=== PATIENT | male | born 1980 | race Caucasian/White ===

== ENCOUNTER 2017-09-16 13:53 | Emergency (ER) | payer BC, OTHER ==
[2017-09-16] MEDS ORDERED: PREDNISONE 20 MG TABLET PO ONE (15:05)
[2017-09-16] MEDS ORDERED: IPRATROPIUM/ALBUTEROL 0.5-2.5 MG/3 ML AMPUL NEB ONE (15:06)
[2017-09-16] MEDS ORDERED: CEPHALEXIN 500 MG CAPSULE PO ONE (15:06)
[2017-09-16] MEDS ORDERED: SULFAMETHOXAZOLE/TRIMETHOPRIM 800-160 MG TABLET PO ONE (15:06)
--- NOTE | 2017-09-16 15:08 | ER Document Report ---
HPI - HPI Patient complains to provider of: Skin infection Onset: Other - 5 days Onset/Duration: Persistent Quality of pain: Achy Pain Level: 3 Context: Patient complains of right thigh skin infection for the past 5 days. Patient states that he did stick a needle in the area to see if he could drain any infection. Patient complains of increased area of redness. Patient denies any fever. Patient does report a history of asthma in which she has very frequent exacerbations. Patient does acknowledge that he has had increased wheezing recently. Associated Symptoms: Other - Leg infection, wheezing. denies: Fever Exacerbated by: Walking Relieved by: Denies Similar symptoms previously: Yes - Asthma Recently seen / treated by doctor: No - ROS ROS below otherwise negative: Yes Systems Reviewed and Negative: Yes All other systems reviewed and negative - CONSTITUTIONAL Constitutional: DENIES: Fever, Chills - CARDIOVASCULAR Cardiovascular: DENIES: Chest pain - RESPIRATORY Respiratory: DENIES: Trouble Breathing, Coughing - GASTROINTESTINAL Gastrointestinal: DENIES: Nausea - MUSCULOSKELETAL Musculoskeletal: REPORTS: Extremity pain - DERM Skin Color: Erythema Past Medical History - General Information source: Patient - Social History Smoking Status: Never Smoker Frequency of alcohol use: Occasional Drug Abuse: None Occupation: [employer] Lives with: Family Family History: Reviewed & Not Pertinent - Past Medical History Cardiac Medical History: Denies: Hx Coronary Artery Disease, Hx Heart Attack, Hx Hypertension Pulmonary Medical History: Reports: Hx Asthma Denies: Hx Bronchitis, Hx COPD, Hx Pneumonia Neurological Medical History: Denies: Hx Cerebrovascular Accident, Hx Seizures Musculoskeltal Medical History: Denies Hx Arthritis, Reports Hx Musculoskeletal Deformity, Reports Hx Musculoskeletal Trauma Past Surgical History: Reports: Hx Appendectomy, Other - Sinus surgery - Immunizations Immunizations up to date: Yes Hx Diphtheria, Pertussis, Tetanus Vaccination: Yes Vertical Provider Document - CONSTITUTIONAL Agree With Documented VS: Yes Exam Limitations: No Limitations General Appearance: WD/WN, No Apparent Distress - INFECTION CONTROL TRAVEL OUTSIDE OF THE [place] IN LAST 30 DAYS: No - HEENT HEENT: Atraumatic, Normocephalic - NECK Neck: Normal Inspection. negative: Lymphadenopathy-Left, Lymphadenopathy-Right - RESPIRATORY Respiratory: No Respiratory Distress, Chest Non-Tender, Wheezing O2 Sat by Pulse Oximetry: 95 - CARDIOVASCULAR Cardiovascular: Regular Rhythm, No Murmur, Tachycardia - BACK Back: Normal Inspection - MUSCULOSKELETAL/EXTREMETIES Musculoskeletal/Extremeties: MAEW, FROM - NEURO Level of Consciousness: Awake, Alert, Appropriate - DERM Integumentary: Warm, Dry, Abscess - Developing abscess to right medial thigh, area tender indurated with surrounding erythema concerning for cellulitis Course - Re-evaluation Re-evalutation: 09/16/17 15:57 Pt continues with scattered wheezing although with good air movement. Patient prefers to continue his treatments at home and is ready to be discharged at this time. Discussed wound management. Discussed worsening symptoms to return immediately for. Patient verbalized understanding and agrees with plan of care. 09/16/17 16:01 Controlled substance database reviewed - Vital Signs Vital signs: Temp Pulse Resp BP Pulse Ox 98.3 F 116 H 20 145/67 H 95 09/16/17 14:15 09/16/17 14:15 09/16/17 14:15 09/16/17 14:15 09/16/17 14:15 Discharge - Discharge Clinical Impression: Elevated blood pressure reading Asthma exacerbation Qualifiers: Asthma severity: unspecified severity Asthma persistence: unspecified Qualified Code(s): J45.901 - Unspecified asthma with (acute) exacerbation Cellulitis of leg Qualifiers: Laterality: right Qualified Code(s): L03.115 - Cellulitis of right lower limb Condition: Stable Disposition: HOME, SELF-CARE Instructions: Asthma ([facility]), Cephalexin ([facility]), Inhaled Bronchodilators ([facility]), Oral Narcotic Medication ([facility]), Steroid Medication, Trimethoprim-Sulfa ([facility]) Additional Instructions: Return immediately for any new or worsening symptoms Followup with your primary care provider, call tomorrow to make a followup appointment Continue to use your nebulizer and inhalers at home as prescribed Your blood pressure was mildly elevated today, have your primary doctor recheck this in the next 2-3 days. Prescriptions: Cephalexin Monohydrate [Keflex 500 mg Capsule] 500 mg PO Q6H 7 Days capsule Hydrocodone/Acetaminophen [[place] 5-325 Tablet] 1 each PO Q4 PRN #15 tablet PRN Reason: Prednisone [Deltasone 20 mg Tablet] 2 tab PO DAILY 4 Days tablet Sulfamethoxazole/Trimethoprim [Bactrim Ds Tablet] 1 each PO BID #20 tablet Forms: Elevated Blood Pressure, Return to Work Referrals: ADILIA BROUSSARD MD [[facility]] - Follow up in 3-5 days
[2017-09-16 17:14] VITALS: BP 125/75
== END 2017-09-16 17:14 | disposition home or self-care (01) ==
LOC: ER 13:53
DX: J45.901 Unspecified asthma with (acute) exacerbation (principal); L03.115 Cellulitis of right lower limb; R03.0 Elevated blood-pressure reading, without diagnosis of hypertension
CPT/HCPCS: 94640; 99282; J7512; J7620

== ENCOUNTER 2018-10-05 23:36 | Inpatient (IN) | payer BC ==
[2018-10-05] MEDS ORDERED: IPRATROPIUM/ALBUTEROL 0.5-2.5 MG/3 ML AMPUL NEB ONE (23:40)
[2018-10-05] MEDS ORDERED: PREDNISONE 20 MG TABLET PO ONE (23:40)
[2018-10-05] MEDS: ALBUTEROL SULFATE 0.083% NEB 2.5 MG/3 ML AMPUL NEB SCH (23:47)
[2018-10-06] MEDS ORDERED: RINGERS SOLUTION,LACTATED 2,000 ML IV ONE (00:10)
[2018-10-06 00:29] LABS: ABSOLUTE BASOPHILS # (AUTO) 0.1 10^3/uL (0.0-0.2); ABSOLUTE LYMPHOCYTES (AUTO) 2.2 10^3/uL (0.5-4.7); ABSOLUTE MONOCYTES (AUTO) 0.9 10^3/uL (0.1-1.4); ABSOLUTE NEUT (AUTO) 5.9 10^3/uL (1.7-8.2); BASOPHILS % (AUTO) 0.7 % (0-2); EOSINOPHILS % (AUTO) 0.3 % (0-6); HEMATOCRIT 45.5 % (37.9-51.0); HEMOGLOBIN 15.8 g/dL (13.5-17.0); LYMPHOCYTES % (AUTO) 23.9 % (13-45); MEAN CORPUSCULAR HEMOGLOBIN 28.6 pg (27.0-33.4); MEAN CORPUSCULAR HGB CONC 34.7 g/dL (32.0-36.0); MEAN CORPUSCULAR VOLUME 82 fl (80-97); MONOCYTES % (AUTO) 10.4 % (3-13); PLATELET COUNT 217 10^3/uL (150-450); RED BLOOD COUNT 5.53 10^6/uL (4.35-5.55); RED CELL DISTRIBUTION WIDTH 14.4 % (11.5-14.0); SEGMENTED NEUTROPHILS % (AUTO) 64.7 % (42-78); TOTAL CELLS COUNTED % (AUTO) 100 %; WHITE BLOOD COUNT 9.1 10^3/uL (4.0-10.5)
[2018-10-06 00:48] LABS: ANION GAP 11 (5-19); BLOOD UREA NITROGEN 18 mg/dL (7-20); CARBON DIOXIDE 29 mmol/L (22-30); CHLORIDE 100 mmol/L (98-107); GLUCOSE 107 mg/dL (75-110); POTASSIUM 4.1 mmol/L (3.6-5.0); SODIUM 139.5 mmol/L (137-145)
[2018-10-06] MEDS ORDERED: ACETAMINOPHEN 325 MG TABLET PO ONE (00:57)
[2018-10-06] MEDS ORDERED: ALBUTEROL SULFATE 0.083% NEB 2.5 MG/3 ML AMPUL NEB ONE (00:59)
--- NOTE | 2018-10-06 00:59 | ER Document Report ---
ED General - General Chief Complaint: Shortness Of Breath Stated Complaint: FLU SYMPTOMS Time Seen by Provider: 10/06/18 00:09 Notes: Patient is a 38-year-old male with a past medical history of asthma, is a history of severe asthma exacerbations in the past requiring intubation who presents complaining of 2 days of fever, cough and increasing shortness of breath. Patient has been trying albuterol inhalers with minimal relief. Has been taking Tylenol for fever with some improvement. No known sick contacts. States that his symptoms progressively worsened today prompting him to come to the hospital. His main concern is that his shortness of breath. Has not seen his primary care doctor regarding today's concerns. Notes some associated nausea, generalized body aches. TRAVEL OUTSIDE OF THE [place] IN LAST 30 DAYS: No - Related Data Allergies/Adverse Reactions: aspirin [Aspirin] Allergy (Severe, Verified 09/19/15 02:12) bronchoconstriction NSAIDS (Non-Steroidal Anti-Inflamma [Nsaids] Allergy (Verified 09/19/15 02:12) Past Medical History - General Information source: Patient - Social History Smoking Status: Never Smoker Frequency of alcohol use: None Drug Abuse: None Lives with: Spouse/Significant other Family History: Reviewed & Not Pertinent - Past Medical History Cardiac Medical History: Denies: Hx Coronary Artery Disease, Hx Heart Attack, Hx Hypertension Pulmonary Medical History: Reports: Hx Asthma Denies: Hx Bronchitis, Hx COPD, Hx Pneumonia Neurological Medical History: Denies: Hx Cerebrovascular Accident, Hx Seizures Renal/ Medical History: Denies: Hx Peritoneal Dialysis Musculoskeletal Medical History: Denies Hx Arthritis, Reports Hx Musculoskeletal Deformity, Reports Hx Musculoskeletal Trauma Past Surgical History: Reports: Hx Appendectomy, Other - Sinus surgery - Immunizations Immunizations up to date: Yes Hx Diphtheria, Pertussis, Tetanus Vaccination: Yes Review of Systems - Review of Systems Notes: Constitutional: Positive for fever. HENT: Negative for sore throat. Eyes: Negative for visual changes. Cardiovascular: Negative for chest pain. Respiratory: Positive for cough and shortness of breath Gastrointestinal: Negative for abdominal pain, positive for nausea Genitourinary: Negative for dysuria. Musculoskeletal: Negative for back pain. Skin: Negative for rash. Neurological: Negative for headaches, weakness or numbness. 10 point ROS negative except as marked above and in HPI. Physical Exam - Vital signs Vitals: Temp Pulse Resp BP Pulse Ox 100.6 F H 137 H 26 H 127/88 H 88 L 10/05/18 23:53 10/05/18 23:53 10/05/18 23:53 10/05/18 23:53 10/05/18 23:53 Interpretation: Tachycardic, Hypoxic, Tachypneic, Febrile Notes: PHYSICAL EXAMINATION: GENERAL: Appears unwell, somewhat pale and shaking HEAD: Atraumatic, normocephalic. EYES: Pupils equal round and reactive to light, extraocular movements intact, sclera anicteric, conjunctiva are normal. ENT: nares patent, oropharynx clear without exudates. Dry mucous membranes. NECK: Normal range of motion, supple without lymphadenopathy LUNGS: Mild to moderate respiratory distress, breathing approximately 30 times per minute on my initial assessment. Coarse breath sounds throughout, faint expiratory wheezing. HEART: Regular tachycardia without murmurs ABDOMEN: Soft, nontender, normoactive bowel sounds. No guarding, no rebound. No masses appreciated. EXTREMITIES: Normal range of motion, no pitting or edema. No cyanosis. NEUROLOGICAL: No focal neurological deficits. Moves all extremities spontaneously and on command. PSYCH: Normal mood, normal affect. SKIN: Warm, Dry, normal turgor, no rashes or lesions noted. Course - Re-evaluation Re-evalutation: 10/06/18 00:58 Patient presents with cough, fever, shortness of breath worrisome for a picture of influenza complicating underlying asthma. Patient was initially saturating 89% on room air, 94% on room air at the time of my assessment receiving multiple nebulizers. Minimal wheezing on initial assessment. She was tachycardic into the 130s as well as febrile at 100.6 F at time of initial presentation. Flu testing, chest x-ray, blood work pending. Patient has received prednisone, multiple nebulizers, and will receive IV fluids, IV magnesium. Will continue to reassess. 10/06/18 01:27 Patient is been reassessed on 2 separate occasions. His work of breathing remains moderately elevated respiratory rate at 25 breaths/min. Patient consistently falls down to 88 or 89% on room air and has been placed on supplemental oxygen. Continuous nebulizers of albuterol are ongoing. Chest x- ray appears to show bilateral interstitial changes likely a multifocal pneumonia versus influenza. Levofloxacin has been initiated. Will continue to reassess. Patient will require hospitalization. 10/06/18 01:33 Patient is influenza A positive. Work of breathing remains relatively uncha nged. I discussed this case with Dr. Vogel who has accepted patient for admission. - Vital Signs Vital signs: Temp Pulse Resp BP Pulse Ox 100.6 F H 137 H 26 H 127/88 H 88 L 10/05/18 23:53 10/05/18 23:53 10/05/18 23:53 10/05/18 23:53 10/05/18 23:53 - Laboratory Result Diagrams: 10/06/18 00:15 10/06/18 00:15 Laboratory results interpreted by me: 10/06/18 00:15 RDW 14.4 H - Diagnostic Test Radiology reviewed: Image reviewed, Reports reviewed Radiology results interpreted by me: 10/06/18 02:13 Chest x-ray: Bilateral interstitial changes more prominent in the lower lobes bilaterally Critical Care Note - Critical Care Note Total time excluding time spent on procedures (mins): 35 Comments: Critical care time spent obtaining history from patient or surrogate, discussions with consultants, development of treatment plan with patient or surrogate, evaluation of patient's response to treatment, examination of patient, ordering and performing treatments and interventions, ordering and revi ew of laboratory studies, re-evaluation of patient's condition, ordering and review of radiographic studies and review of old charts Discharge - Discharge Clinical Impression: Influenza A, Respiratory distress, Hypoxia Asthma exacerbation Qualifiers: Asthma severity: moderate Asthma persistence: persistent Qualified Code(s): J45 .41 - Moderate persistent asthma with (acute) exacerbation Condition: Fair Disposition: ADMITTED INPATIENT Admitting Provider: Hospitalist Unit Admitted: Telemetry
[2018-10-06 01:03] LABS: VENOUS BLOOD BASE EXCESS 2.4 mmol/L; VENOUS BLOOD HCO3 28.7 mmol/L (20-32); VENOUS BLOOD PCO2 50.1 mmHg (35-63); VENOUS BLOOD PH 7.38 (7.30-7.42)
--- NOTE | 2018-10-06 01:14 | RADIOLOGY REPORT (SQ) ---
EXAM DESCRIPTION: XR CHEST 1 VIEW COMPLETED DATE/TME: 10/05/2018 23:40 CLINICAL HISTORY: 38 years Male, SOB/COUGH COMPARISON: None. NUMBER OF VIEWS/TECHNIQUE: 1/AP FINDINGS: Adequate lung volume, mixed mild interstitial and small right lower lobar patchy opacity, normal cardiac silhouette, and intact bony thorax. IMPRESSION: Mild mixed interstitial and airpace opacities. Differential diagnosis includes pulmonary edema, multifocal pneumonia, and chronic interstitial lung disease.
[2018-10-06] MEDS: MAGNESIUM SULFATE/D5W 1 GM/100 ML RTUPB IV SCH ×2 (01:25→02:43)
[2018-10-06 01:26] LABS: A TYPE INFLUENZA AG POSITIVE (NEGATIVE); B INFLUENZA AG NEGATIVE (NEGATIVE)
[2018-10-06] MEDS ORDERED: LEVOFLOXACIN 750 MG/D5W RTU 750 MG/150 ML RTUPB IV ONE (01:27)
[2018-10-06] MEDS ORDERED: IPRATROPIUM/ALBUTEROL 0.5-2.5 MG/3 ML AMPUL NEB PRN (01:49)
[2018-10-06] MEDS ORDERED: GUAIFENESIN SYRP 200 MG/10 ML UDC PO PRN (01:49)
[2018-10-06] MEDS ORDERED: OSELTAMIVIR PHOSPHATE 75 MG CAPSULE PO ONE (02:00)
[2018-10-06] MEDS ORDERED: FLUTICASONE NASAL SPRAY 50 MCG/SPRY 120 SPRAY/16 GM NASL ONE (02:15)
[2018-10-06] MEDS: IPRATROPIUM/ALBUTEROL 0.5-2.5 MG/3 ML AMPUL NEB SCH ×4 (02:43→19:39)
[2018-10-06] MEDS ORDERED: MONTELUKAST SODIUM 10 MG TABLET PO ONE (03:00)
[2018-10-06] MEDS ORDERED: DILTIAZEM HCL 30 MG TABLET PO ONE (04:15)
[2018-10-06] MEDS: NORMAL SALINE 1000 ML 1,000 ML IV PRN ×3 (04:57→23:43)
[2018-10-06] MEDS: HEPARIN SOD (PORCINE) 5,000 UNIT/ML 1 ML SYRINGE SUBCUT SCH ×3 (05:07→21:37)
[2018-10-06 05:23] LABS: ABSOLUTE LYMPHOCYTES (AUTO) 0.9 10^3/uL (0.5-4.7); ABSOLUTE MONOCYTES (AUTO) 0.6 10^3/uL (0.1-1.4); ABSOLUTE NEUT (AUTO) 4.9 10^3/uL (1.7-8.2); BASOPHILS % (AUTO) 0.6 % (0-2); EOSINOPHILS % (AUTO) 0.1 % (0-6); HEMATOCRIT 41.5 % (37.9-51.0); HEMOGLOBIN 14.4 g/dL (13.5-17.0); LYMPHOCYTES % (AUTO) 13.5 % (13-45); MEAN CORPUSCULAR HEMOGLOBIN 28.6 pg (27.0-33.4); MEAN CORPUSCULAR HGB CONC 34.6 g/dL (32.0-36.0); MEAN CORPUSCULAR VOLUME 83 fl (80-97); MONOCYTES % (AUTO) 9.8 % (3-13); PLATELET COUNT 183 10^3/uL (150-450); RED BLOOD COUNT 5.03 10^6/uL (4.35-5.55); RED CELL DISTRIBUTION WIDTH 14.2 % (11.5-14.0); TOTAL CELLS COUNTED % (AUTO) 100 %; WHITE BLOOD COUNT 6.5 10^3/uL (4.0-10.5)
[2018-10-06] MEDS: ACETAMINOPHEN 325 MG TABLET PO PRN ×3 (05:48→21:37)
[2018-10-06] MEDS ORDERED: PREDNISONE 10 MG TABLET PO SCH (06:00)
--- NOTE | 2018-10-06 06:04 | PDOC H&P ---
History of Present Illness Admission Date/PCP: 10/06/18 02:23 ADILIA BROUSSARD MD Patient complains of: Fever and shortness of breath History of Present Illness: KIKA SOSA is a 38 year old male with a past medical history of asthma requiring intubation who presents with less than 48 hours of fever, nonproductive cough, shortness of breath and arthralgia. He denies recent asthma flare and is prompted to seek evaluation in the emergency room where he is found to be hypoxic, tachypneic, febrile with influenza A positivity. He received several albuterol treatments with magnesium and referred to the hospitalist for admission. Patient had received his influenza vaccine this year. Past Medical History Cardiac Medical History: Denies: Coronary Artery Disease, Myocardial Infarction, Hypertension Pulmonary Medical History: Reports: Asthma Denies: Bronchitis, Chronic Obstructive Pulmonary Disease (COPD), Pneumonia Neurological Medical History: Denies: Seizures Musculoskeltal Medical History: Denies: Arthritis Hematology: Denies: Anemia Past Surgical History Past Surgical History: Reports: Appendectomy, Other - Sinus surgery Social History Information Source: Patient, [facility] Records Lives with: Spouse/Significant other Smoking Status: Never Smoker Frequency of Alcohol Use: Rare Hx Recreational Drug Use: No Drugs: None Hx Prescription Drug Abuse: No - Advance Directive Resuscitation Status: Full Code Family History Family History: Reviewed & Not Pertinent Parental Family History Reviewed: Yes Children Family History Reviewed: Yes Sibling(s) Family History Reviewed.: Yes Medication/Allergy Home Medications: Albuterol Sulfate [Proair HFA Inhalation Aerosol 8.5 gm MDI] 2 puff IH Q4HP PRN #1 hfa.[email or web address] 09/19/15 Albuterol Sulfate [Ventolin 0.083% Neb 2.5 mg/3 mL Ampul] 2.5 mg NEB RTQ4HP PRN #30 vial.neb 09/19/15 Mometasone/Formoterol [Dulera 100 Mcg/5 Mcg Inhaler] 2 puff IH BID 09/19/15 Multivitamin [Multivitamins] 1 cap PO DAILY 09/19/15 Prednisone [Deltasone 10 mg Tablet] 10 mg PO ASDIR PRN #21 tablet 09/19/15 Cetirizine HCl [Zyrtec] 10 mg PO DAILY 08/14/16 Fluticasone Propionate [Flonase Nasal [place] 50 Mcg/[place] 16 gm] 2 sprays NASL Q12 08/14/16 Fluticasone/Vilanterol [Breo Ellipta 200-25 Mcg INH] 1 each IH DAILY 08/14/16 Montelukast Sodium [Singulair 10 mg Tablet] 10 mg PO QHS 08/14/16 Cephalexin Monohydrate [Keflex 500 mg Capsule] 500 mg PO Q6H 7 Days capsule 09/16/17 Hydrocodone/Acetaminophen [[place] 5-325 Tablet] 1 each PO Q4 PRN #15 tablet 09/16/17 Prednisone [Deltasone 20 mg Tablet] 2 tab PO DAILY 4 Days tablet 09/16/17 Sulfamethoxazole/Trimethoprim [Bactrim Ds Tablet] 1 each PO BID #20 tablet 09/16/17 Allergies/Adverse Reactions: aspirin [Aspirin] Allergy (Severe, Verified 09/19/15 02:12) bronchoconstriction NSAIDS (Non-Steroidal Anti-Inflamma [Nsaids] Allergy (Verified 09/19/15 02:12) Review of Systems Constitutional: ABSENT: chills, fever(s), headache(s), weight gain, weight loss Eyes: ABSENT: visual disturbances Ears: ABSENT: hearing changes Cardiovascular: ABSENT: chest pain, dyspnea on exertion, edema, orthropnea, palpitations Respiratory: ABSENT: cough, hemoptysis Gastrointestinal: ABSENT: abdominal pain, constipation, diarrhea, hematemesis, hematochezia, nausea, vomiting Genitourinary: ABSENT: dysuria, hematuria Musculoskeletal: ABSENT: joint swelling Integumentary: ABSENT: rash, wounds Neurological: ABSENT: abnormal gait, abnormal speech, confusion, dizziness, focal weakness, syncope Psychiatric: ABSENT: anxiety, depression, homidical ideation, suicidal ideation Endocrine: ABSENT: cold intolerance, heat intolerance, polydipsia, polyuria Hematologic/Lymphatic: ABSENT: easy bleeding, easy bruising Physical Exam Vital Signs: Temp Pulse Resp BP Pulse Ox 100.7 F H 108 H 18 136/65 H 95 10/06/18 04:06 10/06/18 04:27 10/06/18 04:06 10/06/18 04:06 10/06/18 05:54 Pulse Oximeter Continuous Start: 10/06/18 01:49 Freq: RTQ4 Status: Active Protocol: Document 10/06/18 05:54 CBR (Rec: 10/06/18 05:56 CBR [id number]) Pulse Oximetry Assessment Oxygen Saturation (92-100) 95 Oxygen Flow Rate (L/min) 2.5 Oxygen Delivery Method Nasal Cannula Fraction of Inspired Oxygen (FIO2) 30 Equipment Usage Initial Set Up Continuous Pulse Oximeter 24 Hour Charge Charge Now Continuous SpO2 Machine # [id number] Intake & Output 10/04/18 10/05/18 10/06/18 11:59 11:59 11:59 Intake Total 2200 Balance 2200 Weight 126.099 kg General appearance: PRESENT: cooperative, obese, severe distress. ABSENT: hard of hearing Head exam: PRESENT: atraumatic, normocephalic Eye exam: PRESENT: conjunctival injection, EOMI, PERRLA. ABSENT: scleral icterus Ear exam: PRESENT: normal external ear exam Mouth exam: PRESENT: moist, tongue midline Neck exam: ABSENT: carotid bruit, JVD, lymphadenopathy, thyromegaly Respiratory exam: PRESENT: accessory muscle use, crackles, prolonged expiratory phas, retraction, rhonchi, tachypnea, wheezes Cardiovascular exam: PRESENT: +S1, +S2, tachycardia Pulses: PRESENT: normal dorsalis pedis pul Vascular exam: PRESENT: normal capillary refill GI/Abdominal exam: PRESENT: normal bowel sounds, soft. ABSENT: distended, guarding, mass, organolmegaly, rebound, tenderness Rectal exam: PRESENT: deferred Extremities exam: PRESENT: full ROM. ABSENT: calf tenderness, clubbing, pedal edema Neurological exam: PRESENT: alert, awake, oriented to person, oriented to place, oriented to time, oriented to situation, CN II-XII grossly intact. ABSENT: motor sensory deficit Psychiatric exam: PRESENT: appropriate affect, normal mood. ABSENT: homicidal ideation, suicidal ideation Skin exam: PRESENT: dry, intact, warm. ABSENT: cyanosis, rash Results Laboratory Results: 10/06/18 04:40 10/06/18 00:15 10/06/18 10/06/18 10/06/18 00:15 00:15 00:35 WBC 9.1 RBC 5.53 Hgb 15.8 Hct 45.5 MCV 82 MCH 28.6 MCHC 34.7 RDW 14.4 H Plt Count 217 Seg Neutrophils % 64.7 Lymphocytes % 23.9 Monocytes % 10.4 Eosinophils % 0.3 Basophils % 0.7 Absolute Neutrophils 5.9 Absolute Lymphocytes 2.2 Absolute Monocytes 0.9 Absolute Eosinophils 0.0 Absolute Basophils 0.1 VBG pH VBG pCO2 VBG HCO3 VBG Base Excess Sodium 139.5 Potassium 4.1 Chloride 100 Carbon Dioxide 29 Anion Gap 11 BUN 18 Creatinine 1.01 Est GFR ( Amer) > 60 Est GFR (Non-Af Amer) > 60 Glucose 107 Lactic Acid 1.8 Calcium 9.0 10/06/18 10/06/18 00:35 04:40 WBC 6.5 RBC 5.03 Hgb 14.4 Hct 41.5 MCV 83 MCH 28.6 MCHC 34.6 RDW 14.2 H Plt Count 183 Seg Neutrophils % 76.0 Lymphocytes % 13.5 Monocytes % 9.8 Eosinophils % 0.1 Basophils % 0.6 Absolute Neutrophils 4.9 Absolute Lymphocytes 0.9 Absolute Monocytes 0.6 Absolute Eosinophils 0.0 Absolute Basophils 0.0 VBG pH 7.38 VBG pCO2 50.1 VBG HCO3 28.7 VBG Base Excess 2.4 Sodium Potassium Chloride Carbon Dioxide Anion Gap BUN Creatinine Est GFR ( Amer) Est GFR (Non-Af Amer) Glucose Lactic Acid Calcium Impressions: Chest X-Ray 10/05/18 23:40 IMPRESSION: Mild mixed interstitial and airpace opacities. Differential diagnosis includes pulmonary edema, multifocal pneumonia, and chronic interstitial lung disease. Assessment & Plan - Diagnosis (1) Pneumonia Is this a current diagnosis for this admission?: Yes Plan: Complicated by asthma and influenza A. He is placed on Levaquin empirically consider vancomycin. Follow-up CBC and blood culture (2) Asthma exacerbation Qualifiers: Asthma severity: moderate Asthma persistence: persistent Qualified Code(s): J45.41 - Moderate persistent asthma with (acute) exacerbation Is this a current diagnosis for this admission?: Yes Plan: Albuterol, Atrovent, BiPAP as needed, (3) Hypoxia Is this a current diagnosis for this admission?: Yes Plan: Secondary to #1, supplemental oxygen and BiPAP (4) Influenza A Is this a current diagnosis for this admission?: Yes Plan: Tamiflu and symptomatic management. (5) Tachycardia Is this a current diagnosis for this admission?: Yes Plan: Sinus tachycardia in the 140s, concern for evolution of atrial fibrillation or SVT. Cardizem initiated empirically - Time Time Spent: 50 to 70 Minutes - Inpatient Certification Medical Necessity: Need Close Monitoring Due to Risk of Patient Decompensation
[2018-10-06 06:10] LABS: ARTERIAL BLOOD BASE EXCESS 3.9 mmol/L; ARTERIAL BLOOD H2CO3 1.28 mmol/L (1.05-1.35); ARTERIAL BLOOD HCO3 28.4 mmol/L (20-24); ARTERIAL BLOOD O2 SATURATION 96.6 % (94-98); ARTERIAL BLOOD PCO2 42.4 mmHg (35-45); ARTERIAL BLOOD PH 7.44 (7.35-7.45); ARTERIAL BLOOD PO2 83.8 mmHg (80-100); ARTERIAL BLOOD TOTAL CO2 29.7 mmol/L (23-27)
[2018-10-06 06:11] LABS: ARTERIAL BLOOD FIO2 2.5
[2018-10-06] MEDS ORDERED: OSELTAMIVIR PHOSPHATE 75 MG CAPSULE PO SCH (10:00)
[2018-10-06] MEDS: METHYLPREDNISOLONE INJ 40 MG/1 ML SDV IV SCH ×2 (10:04→21:37)
[2018-10-06] MEDS: FLUTICASONE NASAL SPRAY 50 MCG/SPRY 120 SPRAY/16 GM NASL SCH ×2 (10:04→21:38)
[2018-10-06] MEDS: LORATADINE 10 MG TABLET PO SCH (10:04)
[2018-10-06] MEDS: DILTIAZEM HCL 30 MG TABLET PO SCH ×3 (12:18→23:43)
[2018-10-06] MEDS: OSELTAMIVIR PHOSPHATE 75 MG CAPSULE PO SCH (13:30)
[2018-10-06] MEDS: LEVOFLOXACIN 750 MG/D5W RTU 750 MG/150 ML RTUPB IV SCH (21:36)
[2018-10-06] MEDS: MONTELUKAST SODIUM 10 MG TABLET PO SCH (21:37)
[2018-10-07] MEDS: ACETAMINOPHEN 325 MG TABLET PO PRN (01:42)
[2018-10-07] MEDS: IPRATROPIUM/ALBUTEROL 0.5-2.5 MG/3 ML AMPUL NEB SCH ×4 (03:29→20:42)
[2018-10-07] MEDS: DILTIAZEM HCL 30 MG TABLET PO SCH ×3 (05:11→17:28)
[2018-10-07] MEDS: HEPARIN SOD (PORCINE) 5,000 UNIT/ML 1 ML SYRINGE SUBCUT SCH ×3 (05:11→21:43)
[2018-10-07 05:26] LABS: ABSOLUTE LYMPHOCYTES (AUTO) 0.5 10^3/uL (0.5-4.7); ABSOLUTE MONOCYTES (AUTO) 0.5 10^3/uL (0.1-1.4); ABSOLUTE NEUT (AUTO) 6.5 10^3/uL (1.7-8.2); BASOPHILS % (AUTO) 0.3 % (0-2); EOSINOPHILS % (AUTO) 0.1 % (0-6); HEMATOCRIT 42.5 % (37.9-51.0); HEMOGLOBIN 14.6 g/dL (13.5-17.0); LYMPHOCYTES % (AUTO) 7.3 % (13-45); MEAN CORPUSCULAR HEMOGLOBIN 28.4 pg (27.0-33.4); MEAN CORPUSCULAR HGB CONC 34.3 g/dL (32.0-36.0); MEAN CORPUSCULAR VOLUME 83 fl (80-97); MONOCYTES % (AUTO) 6.1 % (3-13); PLATELET COUNT 194 10^3/uL (150-450); RED BLOOD COUNT 5.13 10^6/uL (4.35-5.55); RED CELL DISTRIBUTION WIDTH 14.3 % (11.5-14.0); SEGMENTED NEUTROPHILS % (AUTO) 86.2 % (42-78); TOTAL CELLS COUNTED % (AUTO) 100 %; WHITE BLOOD COUNT 7.6 10^3/uL (4.0-10.5)
[2018-10-07 06:33] LABS: ANION GAP 8 (5-19); BLOOD UREA NITROGEN 14 mg/dL (7-20); CALCIUM 8.9 mg/dL (8.4-10.2); CARBON DIOXIDE 26 mmol/L (22-30); CHLORIDE 105 mmol/L (98-107); GLUCOSE 162 mg/dL (75-110); POTASSIUM 4.8 mmol/L (3.6-5.0)
[2018-10-07] MEDS: LORATADINE 10 MG TABLET PO SCH (09:16)
[2018-10-07] MEDS: METHYLPREDNISOLONE INJ 40 MG/1 ML SDV IV SCH ×2 (09:17→21:42)
[2018-10-07] MEDS: FLUTICASONE NASAL SPRAY 50 MCG/SPRY 120 SPRAY/16 GM NASL SCH ×2 (09:17→21:43)
[2018-10-07] MEDS: OSELTAMIVIR PHOSPHATE 75 MG CAPSULE PO SCH (12:30)
--- NOTE | 2018-10-07 13:36 | PDOC PROGRESS REPORT ---
Subjective Progress Note for:: 10/07/18 Subjective:: This is a 38 yr old male with a PMH of asthma and prior history of mechanical ventilation who presented with fever, cough, arthralgia and increasing SOB. He was found to have asthma exacerbation and was also positive for influenza A. Patient did have a desaturation last night and went down to 78% when his O2 was off. This morning, he says he is still short of breath but that it's better from yesterday. He is currently on 2 lpm. He is not on home O2. Reason For Visit: ASTHMA EXACERBATION,INFLUENZA A,PNEUMONIA Physical Exam Vital Signs: Temp Pulse Resp BP Pulse Ox 97.9 F 86 18 121/63 96 10/07/18 12:00 10/07/18 12:00 10/07/18 12:00 10/07/18 12:00 10/07/18 12:00 Pulse Oximeter Continuous Start: 10/06/18 01:49 Freq: RTQ4 Status: Active Protocol: Document 10/07/18 08:31 [facility] [place] (Rec: 10/07/18 10:12 [facility] [place] [id number]) Pulse Oximetry Assessment Oxygen Saturation (92-100) 92 Oxygen Flow Rate (L/min) 2 Oxygen Delivery Method Nasal Cannula Fraction of Inspired Oxygen (FIO2) 28 Equipment Usage Equipment in Use Continuous SpO2 Machine # N 4 Intake & Output 10/06/18 10/07/18 10/08/18 06:59 06:59 06:59 Intake Total 2350 4190 Balance 2350 4190 Weight 291 lb 3.69 oz 287 lb 4.197 oz General appearance: PRESENT: no acute distress, well-developed, well-nourished Head exam: PRESENT: atraumatic, normocephalic Eye exam: PRESENT: conjunctiva pink, EOMI, PERRLA. ABSENT: scleral icterus Ear exam: PRESENT: normal external ear exam Mouth exam: PRESENT: moist, tongue midline Neck exam: ABSENT: carotid bruit, JVD, lymphadenopathy, thyromegaly Respiratory exam: PRESENT: wheezes. ABSENT: rales, rhonchi Cardiovascular exam: PRESENT: RRR. ABSENT: diastolic murmur, rubs, systolic murmur Pulses: PRESENT: normal dorsalis pedis pul GI/Abdominal exam: PRESENT: normal bowel sounds, soft. ABSENT: distended, guarding, mass, organolmegaly, rebound, tenderness Rectal exam: PRESENT: deferred Extremities exam: PRESENT: full ROM. ABSENT: calf tenderness, clubbing, pedal edema Neurological exam: PRESENT: alert, awake, oriented to person, oriented to place, oriented to time, oriented to situation, CN II-XII grossly intact. ABSENT: motor sensory deficit Results Laboratory Results: 10/07/18 05:13 10/07/18 05:13 10/07/18 10/07/18 05:13 05:13 WBC 7.6 RBC 5.13 Hgb 14.6 Hct 42.5 MCV 83 MCH 28.4 MCHC 34.3 RDW 14.3 H Plt Count 194 Seg Neutrophils % 86.2 H Lymphocytes % 7.3 L Monocytes % 6.1 Eosinophils % 0.1 Basophils % 0.3 Absolute Neutrophils 6.5 Absolute Lymphocytes 0.5 Absolute Monocytes 0.5 Absolute Eosinophils 0.0 Absolute Basophils 0.0 Sodium 139.0 Potassium 4.8 Chloride 105 Carbon Dioxide 26 Anion Gap 8 BUN 14 Creatinine 0.70 Est GFR ( Amer) > 60 Est GFR (Non-Af Amer) > 60 Glucose 162 H Calcium 8.9 Impressions: Chest X-Ray 10/05/18 23:40 IMPRESSION: Mild mixed interstitial and airpace opacities. Differential diagnosis includes pulmonary edema, multifocal pneumonia, and chronic interstitial lung disease. Assessment & Plan - Diagnosis (1) Acute respiratory failure with hypoxia Is this a current diagnosis for this admission?: Yes Plan: Secondary to asthma exacerbation and influenza A. Currently saturating well on 2 lpm. (2) Asthma exacerbation Qualifiers: Asthma severity: moderate Asthma persistence: persistent Qualified Code(s): J45.41 - Moderate persistent asthma with (acute) exacerbation Is this a current diagnosis for this admission?: Yes Plan: Continue IV steroids and breathing treatments. (3) Influenza A Is this a current diagnosis for this admission?: Yes Plan: Continue oseltamivir. (4) Pneumonia Is this a current diagnosis for this admission?: Yes Plan: Discontinue Levaquin in the next 24-48 hrs if he continues to improve. - Time Time Spent with patient: 25-34 minutes
[2018-10-07] MEDS: NORMAL SALINE 1000 ML 1,000 ML IV PRN ×2 (17:28→21:42)
[2018-10-07] MEDS: MONTELUKAST SODIUM 10 MG TABLET PO SCH (21:42)
[2018-10-07] MEDS: FLUTICASONE/SALMETEROL DISKUS 250-50 MCG/DOSE IH SCH (21:42)
[2018-10-07] MEDS: LEVOFLOXACIN 750 MG/D5W RTU 750 MG/150 ML RTUPB IV SCH (21:42)
[2018-10-08] MEDS: DILTIAZEM HCL 30 MG TABLET PO SCH ×5 (00:03→23:39)
[2018-10-08] MEDS: IPRATROPIUM/ALBUTEROL 0.5-2.5 MG/3 ML AMPUL NEB SCH ×4 (02:56→19:43)
[2018-10-08] MEDS: HEPARIN SOD (PORCINE) 5,000 UNIT/ML 1 ML SYRINGE SUBCUT SCH ×2 (05:09→15:11)
[2018-10-08 05:36] LABS: ABSOLUTE LYMPHOCYTES (AUTO) 0.7 10^3/uL (0.5-4.7); ABSOLUTE MONOCYTES (AUTO) 0.5 10^3/uL (0.1-1.4); ABSOLUTE NEUT (AUTO) 10.5 10^3/uL (1.7-8.2); BASOPHILS % (AUTO) 0.1 % (0-2); HEMATOCRIT 41.9 % (37.9-51.0); HEMOGLOBIN 14.4 g/dL (13.5-17.0); LYMPHOCYTES % (AUTO) 5.7 % (13-45); MEAN CORPUSCULAR HEMOGLOBIN 28.6 pg (27.0-33.4); MEAN CORPUSCULAR HGB CONC 34.3 g/dL (32.0-36.0); MEAN CORPUSCULAR VOLUME 83 fl (80-97); MONOCYTES % (AUTO) 4.5 % (3-13); PLATELET COUNT 202 10^3/uL (150-450); RED BLOOD COUNT 5.03 10^6/uL (4.35-5.55); RED CELL DISTRIBUTION WIDTH 14.5 % (11.5-14.0); SEGMENTED NEUTROPHILS % (AUTO) 89.7 % (42-78); TOTAL CELLS COUNTED % (AUTO) 100 %; WHITE BLOOD COUNT 11.7 10^3/uL (4.0-10.5)
[2018-10-08] MEDS: LORATADINE 10 MG TABLET PO SCH (10:22)
[2018-10-08] MEDS: METHYLPREDNISOLONE INJ 40 MG/1 ML SDV IV SCH (10:22)
[2018-10-08] MEDS: NORMAL SALINE 1000 ML 1,000 ML IV PRN (10:23)
[2018-10-08] MEDS: FLUTICASONE/SALMETEROL DISKUS 250-50 MCG/DOSE IH SCH (10:25)
--- NOTE | 2018-10-08 10:25 | CONSULTATION REPORT E ---
Consultation Report NAME: KIKA SOSA : 1980 AGE: 38Y DATE: 10/07/2018 ROOM: 534 A TO: JOSE MANUEL KIM M.D. FROM: TEMO DIA M.D. Requesting Physician HISTORY OF PRESENT ILLNESS: The patient is a 38-year-old male who came in with past medical history of bronchial asthma and intubated several years ago. He came in for increased shortness of breath, body malaise, nonproductive cough, wheezing, and chest tightness over the last 2 to 3 days. The condition worsened and the patient went to the emergency room. The patient was treated for bronchial asthma acute severe exacerbation and influenza A. Denies any nausea, vomiting, or diarrhea. Claims that he has had blood-streaked hemoptysis/blood-streaked sputum a few times. No vomiting, no diarrhea, no hematemesis. PAST MEDICAL HISTORY: No history of heart attack. History of asthma. Denies any history of seizure, arthritis, anemia. PAST SURGICAL HISTORY: Appendectomy and sinus surgery. SOCIAL HISTORY: Lives with spouse/significant other. Never smoked. Denies any alcohol abuse. Denies any illicit drug use. Advanced Directives, FULL CODE. FAMILY HISTORY: Reviewed and not pertinent. MEDICATIONS: Home medications include albuterol inhaler, Ventolin nebulizer, Dulera, multivitamins, prednisone 10 mg daily, Zyrtec, Flonase, Breo Ellipta, Singulair, cephalexin, hydrocodone. REVIEW OF SYSTEMS: CONSTITUTIONAL: Denies any fever or chills over the last few days. He claims that he had some headache and body malaise. No jaundice or visible cyanosis. No ear discharge. CHEST AND LUNGS: No angina or heart attack or palpitations. RESPIRATORY: Complains about increased shortness of breath and coughing, nonproductive cough, chest tightness, and shortness of breath. GASTROINTESTINAL: No nausea, vomiting, or diarrhea. GENITOURINARY: No dysuria or hematuria EXTREMITIES: No joint swelling or cellulitis. PHYSICAL EXAMINATION: GENERAL: The patient is awake, alert, coherent, oriented x3. VITAL SIGNS: Afebrile with temperature 98 degrees Fahrenheit with a T-max of 99 degrees. Heart rate is 98, blood pressure is 117/57, respiratory rate 18, saturation 97% on room air. EYES: No jaundice or pallor. EARS, NOSE, AND THROAT: No ear drainage. No nasal discharge. CHEST AND LUNGS: No wheezing, no rhonchi, no coarse crackles. CARDIOVASCULAR: S1, S2 distinct. Normal rate and rhythm. ABDOMEN: Flabby. Positive bowel sounds. Soft, nondistended, and nontender. EXTREMITIES: No joint swelling or cellulitis. LABORATORY: CBC done today shows a white count of 7.6, hemoglobin 14.6, hematocrit 42.5, and platelet count 194. Chemistry done today showed sodium is 139, potassium 4.8, chloride 105, CO2 26, BUN 14, creatinine 0.7, glucose 132, and calcium 8.9. Influenza A rapid test is positive. Influenza B rapid test is negative. ASSESSMENT: 1. Bronchial asthma, acute severe exacerbation. Currently stable and not in bronchospasm. 2. Hypoxemia and exertional dyspnea, currently on oxygen therapy. 3. Morbid obesity. PLAN AND RECOMMENDATIONS: 1. Recommend home oxygen therapy evaluation to determine and quantify oxygen treatment and to determine oxygen therapy needs. 2. Start the patient on Advair 250 mcg 1 puff daily. 3. Continue Levaquin 500 mg 1 tablet daily. 4. Taper Solu-Medrol to prednisone 10 mg tablet p.o. daily. Taper over 4 weeks time. 5. Recommend Pulmonary Clinic followup in 2 to 3 weeks after hospital discharge. DICTATING PHYSICIAN: JOSE MANUEL KIM MD,SENTHIL,MPH [id number] PHY#: [id number] ID: [id number] JOB#: [id number] ACCT: [id number] cc:JOSE MANUEL KIM M.D. > MTDBrenda
[2018-10-08] MEDS: FLUTICASONE NASAL SPRAY 50 MCG/SPRY 120 SPRAY/16 GM NASL SCH (10:26)
[2018-10-08] MEDS ORDERED: ALBUTEROL SULFATE HFA (90 MCG/PUFF) 200 PUFF/8.5 GM MDI IH PRN (15:09)
[2018-10-08] MEDS ORDERED: ALBUTEROL SULFATE 0.083% NEB 2.5 MG/3 ML AMPUL NEB PRN (15:09)
[2018-10-08] MEDS: OSELTAMIVIR PHOSPHATE 75 MG CAPSULE PO SCH (15:11)
[2018-10-08] MEDS: PREDNISONE 20 MG TABLET PO SCH (17:44)
--- NOTE | 2018-10-08 17:53 | RADIOLOGY REPORT (SQ) ---
EXAM DESCRIPTION: CT CHEST WITHOUT COMPLETED DATE/TIME: 10/08/2018 5:33 pm REASON FOR STUDY: pneumonia COMPARISON: 2012 TECHNIQUE: CT scan performed of the chest without intravenous contrast. Images reviewed with lung, soft tissue and bone windows. Reconstructed coronal and sagittal MPR images reviewed. All images st ored on PACS. All CT scanners at this facility use dose modulation, iterative reconstruction, and/or weight based d osing when appropriate to reduce radiation dose to as low as reasonably achievable (ALARA). [facility]: Dose Right [facility]: CareDose [facility]: Dose Right [facility]: Teradose 4D [facility]: Smart [employer] RADIATION DOSE: CT Rad equipment meets quality standard of care and radiation dose reduction techniq ues were employed. CTDIvol: 20.5 mGy. DLP: 837 mGy-cm. mGy. LIMITATIONS: No technical limitations. FINDINGS: LUNGS AND PLEURA: No scattered patchy ground-glass attenuation in both lungs with relative sparing of the left lower lobe. No dense consolidation or cavitation. Stable less than 4 mm nodule s in the right upper lobe. No effusions. HILAR AND MEDIASTINAL STRUCTURES: No identified masses or abnormal nodes. No obvious aneurysm. HEART AND VASCULAR STRUCTURES: No aneurysm. No pericardial effusion. UPPER ABDOMEN: No acute findings. Limited exam. THYROID AND OTHER SOFT TISSUES: No masses. No adenopathy. BONES: Nothing acute. HARDWARE: None in the chest. OTHER: No other significant findings. IMPRESSION: Bilateral pneumonia. TECHNICAL DOCUMENTATION: JOB ID: [id number] Quality ID # [id number]: Final reports with documentation of one or more dose reduction techniques (e.g., Au tomated exposure control, adjustment of the mA and/or kV according to patient size, use of iterative reconstruction technique) 2010 [employer]- All Rights Reserved Reading location - IP/workstation name: [email or web address]
[2018-10-08] MEDS ORDERED: MOMETASONE IH SCH (18:00)
[2018-10-08] MEDS ORDERED: FORMOTEROL IH SCH (18:00)
--- NOTE | 2018-10-08 18:23 | PDOC PROGRESS REPORT ---
Subjective Progress Note for:: 10/08/18 Subjective:: 38 yr old male with a PMH of asthma and prior history of mechanical ventilation who presented with fever, cough, arthralgia and increasing SOB. He was found to have asthma exacerbation and was also positive for influenza A. Patient did have a desaturation last night and went down to 78% when his O2 was off. This morning, he says he is still short of breath but that it's better from yesterday. He is currently on 2 lpm. He is not on home O2. 10/08/2018-no acute events in the last 24 hours. Patient is afebrile. Pulse ox is 96% on 2 L. Patient is complaining with even with minimal activity pulse ox is dropping. Dr. Benjamin saw the patient his recommendation is to check for the home oxygen requirements. Patient is requesting 3 CT chest today, the results came back it indicates bilateral pneumonia. Presently is on levofloxacin 500 mg IV daily added Rocephin 2 g IV daily. Reason For Visit: ASTHMA EXACERBATION,INFLUENZA A,PNEUMONIA Physical Exam Vital Signs: Temp Pulse Resp BP Pulse Ox 98.5 F 95 19 133/72 H 95 10/08/18 16:21 10/08/18 16:21 10/08/18 16:21 10/08/18 16:21 10/08/18 16:21 Pulse Oximeter Continuous Start: 10/06/18 01:49 Freq: RTQ4 Status: Active Protocol: Document 10/08/18 13:37 [facility] [place]Rec[place] 10/08/18 13:50 [facility] [id number] Pulse Oximetry Assessment Oxygen Saturation (92-100) 96 Oxygen Flow Rate (L/min) 2 Oxygen Delivery Method Nasal Cannula Fraction of Inspired Oxygen (FIO2) 28 Equipment Usage Equipment in Use Continuous SpO2 Machine # N 4 Additional RT Notes Other with [employer] Student- [employer]yllan Intake & Output 10/07/18 10/08/18 10/09/18 06:59 06:59 06:59 Intake Total 4190 2253 2039 Balance 4190 2253 0 Weight 130.3 kg 130.2 kg General appearance: PRESENT: no acute distress Head exam: PRESENT: atraumatic Eye exam: PRESENT: PERRLA Mouth exam: PRESENT: dry mucosa Neck exam: ABSENT: carotid bruit, JVD, lymphadenopathy, thyromegaly Respiratory exam: PRESENT: decreased breath sounds, wheezes Cardiovascular exam: PRESENT: tachycardia GI/Abdominal exam: PRESENT: normal bowel sounds, soft. ABSENT: distended, guarding, mass, organolmegaly, rebound, tenderness Extremities exam: PRESENT: full ROM. ABSENT: calf tenderness, clubbing, pedal edema Neurological exam: PRESENT: alert, awake, oriented to person, oriented to place, oriented to time, oriented to situation, CN II-XII grossly intact. ABSENT: motor sensory deficit Psychiatric exam: PRESENT: appropriate affect, normal mood. ABSENT: homicidal ideation, suicidal ideation Results Laboratory Results: 10/08/18 04:24 10/07/18 05:13 10/08/18 04:24 WBC 11.7 H RBC 5.03 Hgb 14.4 Hct 41.9 MCV 83 MCH 28.6 MCHC 34.3 RDW 14.5 H Plt Count 202 Seg Neutrophils % 89.7 H Lymphocytes % 5.7 L Monocytes % 4.5 Eosinophils % 0.0 Basophils % 0.1 Absolute Neutrophils 10.5 H Absolute Lymphocytes 0.7 Absolute Monocytes 0.5 Absolute Eosinophils 0.0 Absolute Basophils 0.0 Impressions: Chest X-Ray 10/05/18 23:40 IMPRESSION: Mild mixed interstitial and airpace opacities. Differential diagnosis includes pulmonary edema, multifocal pneumonia, and chronic interstitial lung disease. Chest CT 10/08/18 00:00 IMPRESSION: Bilateral pneumonia. Assessment & Plan - Diagnosis (1) Acute respiratory failure with hypoxia Is this a current diagnosis for this admission?: Yes Plan: Secondary to asthma exacerbation and influenza A. Currently saturating well on 2 lpm. 10/08/2018 acute respiratory failure with hypoxia probably secondary to asthma exacerbation and influenza A. Patient is presently on 2 L oxygen pulse ox is 96%. Chest x-ray done shows bilateral pneumonia. Presently on levofloxacin IV 5oo mg daily, added Rocephin 2 g IV daily. Blood cultures are negative so far. (2) Asthma exacerbation Qualifiers: Asthma severity: moderate Asthma persistence: persistent Qualified Code(s): J45.41 - Moderate persistent asthma with (acute) exacerbation Is this a current diagnosis for this admission?: Yes Plan: 10/08/2018-patient has history of chronic asthma. Presently is on prednisone 20 mg po bid and Advair 1 inhalation every 12 hours, DuoNeb 3 mL every 6 hours, albuterol inhaler 2 puffs every 6 hours as needed. Plan is to continue the present management. (3) Influenza A Is this a current diagnosis for this admission?: Yes Plan: 10/08/2018-patient was positive for influenza A he is on droplet precautions, on Tamiflu. We will continue the present management. (4) Pneumonia Is this a current diagnosis for this admission?: Yes Plan: 10/08/2018 patient is presently receiving levofloxacin 500 mg IV daily, CT chest done today shows bilateral pneumonia. Rocephin 2 g IV daily added to the present regimen. - Time Time Spent with patient: 15-24 minutes Medications reviewed and adjusted accordingly: Yes Anticipated discharge: Home
[2018-10-08] MEDS ORDERED: MONTELUKAST SODIUM 10 MG TABLET PO SCH (22:00)
[2018-10-08] MEDS ORDERED: FLUTICASONE NASAL SPRAY 50 MCG/SPRY 120 SPRAY/16 GM NASL SCH (22:00)
[2018-10-08] MEDS: LEVOFLOXACIN 750 MG TABLET PO SCH (22:38)
[2018-10-08] MEDS: MONTELUKAST SODIUM 10 MG TABLET PO SCH (22:38)
[2018-10-08] MEDS: CEFTRIAXONE 2 GM/D5W RTU 2 GM/50 ML RTUPB IV SCH (22:38)
[2018-10-09] MEDS: HEPARIN SOD (PORCINE) 5,000 UNIT/ML 1 ML SYRINGE SUBCUT SCH ×4 (00:22→21:49)
[2018-10-09] MEDS: IPRATROPIUM/ALBUTEROL 0.5-2.5 MG/3 ML AMPUL NEB SCH ×4 (01:56→20:58)
[2018-10-09] MEDS: DILTIAZEM HCL 30 MG TABLET PO SCH ×3 (05:49→18:19)
[2018-10-09] MEDS: FLUTICASONE/SALMETEROL DISKUS 250-50 MCG/DOSE IH SCH ×3 (06:33→21:45)
[2018-10-09] MEDS: FLUTICASONE NASAL SPRAY 50 MCG/SPRY 120 SPRAY/16 GM NASL SCH ×3 (06:33→21:45)
[2018-10-09 07:27] LABS: ABSOLUTE LYMPHOCYTES (AUTO) 0.9 10^3/uL (0.5-4.7); ABSOLUTE NEUT (AUTO) 9.8 10^3/uL (1.7-8.2); BASOPHILS % (AUTO) 0.3 % (0-2); HEMATOCRIT 42.6 % (37.9-51.0); HEMOGLOBIN 14.3 g/dL (13.5-17.0); LYMPHOCYTES % (AUTO) 7.6 % (13-45); MEAN CORPUSCULAR HEMOGLOBIN 27.8 pg (27.0-33.4); MEAN CORPUSCULAR HGB CONC 33.5 g/dL (32.0-36.0); MEAN CORPUSCULAR VOLUME 83 fl (80-97); MONOCYTES % (AUTO) 8.3 % (3-13); PLATELET COUNT 206 10^3/uL (150-450); RED BLOOD COUNT 5.12 10^6/uL (4.35-5.55); RED CELL DISTRIBUTION WIDTH 14.1 % (11.5-14.0); SEGMENTED NEUTROPHILS % (AUTO) 83.8 % (42-78); TOTAL CELLS COUNTED % (AUTO) 100 %; WHITE BLOOD COUNT 11.7 10^3/uL (4.0-10.5)
[2018-10-09] MEDS: PREDNISONE 20 MG TABLET PO SCH ×2 (09:26→18:19)
[2018-10-09] MEDS: LORATADINE 10 MG TABLET PO SCH (09:26)
[2018-10-09] MEDS ORDERED: (PENDING PHARMACY ID) (Tiotropium Bromide [Spiriva Respimat] 2 PUFF) IH SCH (10:00)
[2018-10-09] MEDS ORDERED: CETIRIZINE 10 MG TABLET PO SCH (10:00)
[2018-10-09] MEDS: OSELTAMIVIR PHOSPHATE 75 MG CAPSULE PO SCH (14:17)
--- NOTE | 2018-10-09 17:07 | PDOC PROGRESS REPORT ---
Subjective Progress Note for:: 10/09/18 Subjective:: 38 yr old male with a PMH of asthma and prior history of mechanical ventilation who presented with fever, cough, arthralgia and increasing SOB. He was found to have asthma exacerbation and was also positive for influenza A. Patient did have a desaturation last night and went down to 78% when his O2 was off. This morning, he says he is still short of breath but that it's better from yesterday. He is currently on 2 lpm. He is not on home O2. 10/08/2018-no acute events in the last 24 hours. Patient is afebrile. Pulse ox is 96% on 2 L. Patient is complaining with even with minimal activity pulse ox is dropping. Dr. Benjamin saw the patient his recommendation is to check for the home oxygen requirements. Patient is requesting 3 CT chest today, the results came back it indicates bilateral pneumonia. Presently is on levofloxacin 500 mg IV daily added Rocephin 2 g IV daily. 10/09/2018 CT chest was done yesterday shows bilateral pneumonia. Patient is afebrile. No acute events in the last 24 hours. Pulse ox at rest on 1 L is 96%. Patient is presently on levofloxacin 500 mg IV daily and Rocephin 2 g IV daily. pt also positive for influenza A is on Tamiflu. Reason For Visit: ASTHMA EXACERBATION,INFLUENZA A,PNEUMONIA Physical Exam Vital Signs: Temp Pulse Resp BP Pulse Ox 98.1 F 97 20 142/87 H 96 10/09/18 15:14 10/09/18 15:14 10/09/18 15:14 10/09/18 15:14 10/09/18 15:14 Pulse Oximeter Continuous Start: 10/06/18 01:49 Freq: RTQ4 Status: Active Protocol: Document 10/09/18 12:00 [facility] (Rec: 10/09/18 13:31 [facility] [id number]) Pulse Oximetry Assessment Oxygen Saturation (92-100) 96 Oxygen Flow Rate (L/min) 1 Oxygen Delivery Method Nasal Cannula Fraction of Inspired Oxygen (FIO2) 24 Equipment Usage Equipment in Use Continuous SpO2 Machine # 4 Intake & Output 10/08/18 10/09/18 10/10/18 06:59 06:59 06:59 Intake Total 2253 3272 900 Balance 2253 3275 900 Weight 130.2 kg 134.6 kg General appearance: PRESENT: no acute distress Head exam: PRESENT: atraumatic Eye exam: PRESENT: PERRLA Mouth exam: PRESENT: moist Neck exam: ABSENT: carotid bruit, JVD, lymphadenopathy, thyromegaly Respiratory exam: PRESENT: decreased breath sounds Pulses: PRESENT: normal dorsalis pedis pul GI/Abdominal exam: PRESENT: normal bowel sounds, soft. ABSENT: distended, guarding, mass, organolmegaly, rebound, tenderness Extremities exam: PRESENT: full ROM. ABSENT: calf tenderness, clubbing, pedal edema Neurological exam: PRESENT: alert, awake, oriented to person, oriented to place, oriented to time, oriented to situation, CN II-XII grossly intact. ABSENT: motor sensory deficit Psychiatric exam: PRESENT: appropriate affect, normal mood. ABSENT: homicidal ideation, suicidal ideation Results Laboratory Results: 10/09/18 06:56 10/07/18 05:13 10/09/18 06:56 WBC 11.7 H RBC 5.12 Hgb 14.3 Hct 42.6 MCV 83 MCH 27.8 MCHC 33.5 RDW 14.1 H Plt Count 206 Seg Neutrophils % 83.8 H Lymphocytes % 7.6 L Monocytes % 8.3 Eosinophils % 0.0 Basophils % 0.3 Absolute Neutrophils 9.8 H Absolute Lymphocytes 0.9 Absolute Monocytes 1.0 Absolute Eosinophils 0.0 Absolute Basophils 0.0 Impressions: Chest X-Ray 10/05/18 23:40 IMPRESSION: Mild mixed interstitial and airpace opacities. Differential diagnosis includes pulmonary edema, multifocal pneumonia, and chronic interstitial lung disease. Chest CT 10/08/18 00:00 IMPRESSION: Bilateral pneumonia. Assessment & Plan - Diagnosis (1) Acute respiratory failure with hypoxia Is this a current diagnosis for this admission?: Yes Plan: Secondary to asthma exacerbation and influenza A. Currently saturating well on 2 lpm. 10/08/2018 acute respiratory failure with hypoxia probably secondary to asthma exacerbation and influenza A. Patient is presently on 2 L oxygen pulse ox is 96%. Chest x-ray done shows bilateral pneumonia. Presently on levofloxacin IV 5oo mg daily, added Rocephin 2 g IV daily. Blood cultures are negative so far. 10/09/2018-patient was admitted with acute respiratory failure with hypoxia probably secondary to asthma exacerbation and positive for influenza A. Pulse ox today on 1 L is 96%. CT chest done yesterday shows bilateral pneumonia. Presently on levofloxacin 500 mg IV daily and Rocephin 1 g IV daily. Blood cultures are negative so far. Plan is to continue the present management. (2) Asthma exacerbation Qualifiers: Asthma severity: moderate Asthma persistence: persistent Qualified Code(s): J45.41 - Moderate persistent asthma with (acute) exacerbation Is this a current diagnosis for this admission?: Yes Plan: 10/08/2018-patient has history of chronic asthma. Presently is on prednisone 20 mg po bid and Advair 1 inhalation every 12 hours, DuoNeb 3 mL every 6 hours, albuterol inhaler 2 puffs every 6 hours as needed. Plan is to continue the present management. 10/09/2018-patient is presently on prednisone 20 mg p.o. twice a day Advair inhalation every 12 hours, DuoNeb's every 6 as needed, albuterol inhaler 2 puffs every 6 as needed. Patient is asymptomatic this morning. Plan is to continue the present management. (3) Influenza A Is this a current diagnosis for this admission?: Yes Plan: 10/08/2018-patient was positive for influenza A he is on droplet precautions, on Tamiflu. We will continue the present management. 10/09/2018-patient is positive for influenza A is on Tamiflu. Plan is to complete 5 days of course. (4) Pneumonia Is this a current diagnosis for this admission?: Yes Plan: 10/08/2018 patient is presently receiving levofloxacin 500 mg IV daily, CT chest done today shows bilateral pneumonia. Rocephin 2 g IV daily added to the present regimen. 10/09/2018-CT scan shows bilateral pneumonia he is on levofloxacin 500 mg IV daily and Rocephin 2 g IV daily. Plan is to continue the present management. - Time Time Spent with patient: 15-24 minutes Medications reviewed and adjusted accordingly: Yes Anticipated discharge: Home
[2018-10-09] MEDS: CEFTRIAXONE 2 GM/D5W RTU 2 GM/50 ML RTUPB IV SCH (21:46)
[2018-10-09] MEDS: MONTELUKAST SODIUM 10 MG TABLET PO SCH (21:47)
[2018-10-09] MEDS: LEVOFLOXACIN 750 MG TABLET PO SCH (21:47)
[2018-10-09] MEDS: GUAIFENESIN 600 MG TABLET.SA PO SCH (21:47)
[2018-10-10] MEDS: DILTIAZEM HCL 30 MG TABLET PO SCH ×3 (01:05→15:38)
[2018-10-10] MEDS: IPRATROPIUM/ALBUTEROL 0.5-2.5 MG/3 ML AMPUL NEB SCH ×3 (02:01→13:39)
[2018-10-10] MEDS: HEPARIN SOD (PORCINE) 5,000 UNIT/ML 1 ML SYRINGE SUBCUT SCH ×2 (06:40→15:38)
[2018-10-10] MEDS: PREDNISONE 20 MG TABLET PO SCH ×2 (11:40→17:02)
[2018-10-10] MEDS: GUAIFENESIN 600 MG TABLET.SA PO SCH (11:40)
[2018-10-10] MEDS: LORATADINE 10 MG TABLET PO SCH (11:40)
[2018-10-10] MEDS: FLUTICASONE NASAL SPRAY 50 MCG/SPRY 120 SPRAY/16 GM NASL SCH (11:43)
[2018-10-10] MEDS: FLUTICASONE/SALMETEROL DISKUS 250-50 MCG/DOSE IH SCH (11:43)
[2018-10-10] MEDS: OSELTAMIVIR PHOSPHATE 75 MG CAPSULE PO SCH (17:02)
--- NOTE | 2018-10-10 17:05 | PDOC DISCHARGE SUMMARY ---
General - Admit/Disc Date/PCP Admission Date/Primary Care Provider: 10/06/18 02:23 ADILIA BROUSSARD MD Discharge Date: 10/10/18 - Discharge Diagnosis (1) Acute respiratory failure with hypoxia Is this a current diagnosis for this admission?: Yes Summary: Secondary to asthma exacerbation and influenza A. Currently saturating well on 2 lpm. 10/08/2018 acute respiratory failure with hypoxia probably secondary to asthma exacerbation and influenza A. Patient is presently on 2 L oxygen pulse ox is 96%. Chest x-ray done shows bilateral pneumonia. Presently on levofloxacin IV 5oo mg daily, added Rocephin 2 g IV daily. Blood cultures are negative so far. 10/09/2018-patient was admitted with acute respiratory failure with hypoxia probably secondary to asthma exacerbation and positive for influenza A. Pulse ox today on 1 L is 96%. CT chest done yesterday shows bilateral pneumonia. Presently on levofloxacin 500 mg IV daily and Rocephin 1 g IV daily. Blood cultures are negative so far. Plan is to continue the present management. 10/10/2018-this 38-year-old male with history of asthma admitted with acute on chronic respiratory failure with hypoxia. Most likely secondary to asthma exacerbation/influenza A. Recent CT scan shows bilateral pneumonia. Which may be also contributing to his acute respiratory failure. Patient requested to go home today on p.o. antibiotic therapy I gave him a prescription for levofloxacin 750 mg p.o. daily for 5 days. Strongly advised him to follow-up with his primary care physician in 3-[address] Saba in 1 week. (2) Asthma exacerbation Is this a current diagnosis for this admission?: Yes Summary: 10/08/2018-patient has history of chronic asthma. Presently is on prednisone 20 mg po bid and Advair 1 inhalation every 12 hours, DuoNeb 3 mL every 6 hours, albuterol inhaler 2 puffs every 6 hours as needed. Plan is to continue the present management. 10/09/2018-patient is presently on prednisone 20 mg p.o. twice a day Advair inhalation every 12 hours, DuoNeb's every 6 as needed, albuterol inhaler 2 puffs every 6 as needed. Patient is asymptomatic this morning. Plan is to continue the present management. 10/10/2018-patient was admitted with asthma exacerbation probably secondary to underlying pneumonia. His pulse oxes are improved he is able to walk around without any hypoxic symptoms. Pulse ox on room air is 95% today. Patient was advised to continue his inhalers and nebulizers at home and he was given a prescription for prednisone 10 mg p.o. twice daily. (3) Influenza A Is this a current diagnosis for this admission?: Yes Summary: 10/08/2018-patient was positive for influenza A he is on droplet precautions, on Tamiflu. We will continue the present management. 10/09/2018-patient is positive for influenza A is on Tamiflu. Plan is to complete 5 days of course. 10/10/2018-patient was positive for influenza while he was here, gave the prescription for Tamiflu 75 mg p.o. daily for 5 days. (4) Pneumonia Is this a current diagnosis for this admission?: Yes Summary: 10/08/2018 patient is presently receiving levofloxacin 500 mg IV daily, CT chest done today shows bilateral pneumonia. Rocephin 2 g IV daily added to the present regimen. 10/09/2018-CT scan shows bilateral pneumonia he is on levofloxacin 500 mg IV daily and Rocephin 2 g IV daily. Plan is to continue the present management. 10/10/2018-patient was treated with IV Rocephin and Levaquin for pneumonia he is going home on levofloxacin 750 mg p.o. daily for 5 days. Patient was strongly advised to follow-up with primary care physician in 3-5 days. - Additional Information Resuscitation Status: Full Code Discharge Diet: As Tolerated, Cardiac Discharge Activity: Activity As Tolerated Prescriptions: Levofloxacin [Levaquin 750 mg Tablet] 750 mg PO QHS #5 tablet Oseltamivir Phosphate [Tamiflu 75 mg Capsule] 75 mg PO DAILY@1300 #5 capsule Prednisone [Deltasone 20 mg Tablet] 10 mg PO BID #5 tablet Home Medications: Albuterol Sulfate [Proair HFA Inhalation Aerosol 8.5 gm MDI] 2 puff IH Q6HP PRN 10/06/18 Albuterol Sulfate [Ventolin 0.083% Neb 2.5 mg/3 mL Ampul] 1 vial NEB RTTIDP PRN 10/06/18 Cetirizine HCl [Zyrtec 10 mg Tablet] 1 tab PO DAILY 10/06/18 Fluticasone Propionate [Flonase Nasal [place] 50 Mcg/[place] 16 gm] 2 sprays NASL Q12 10/06/18 Mometasone/Formoterol [Dulera 200 Mcg/5 Mcg Inhaler] 2 gm IH BID 10/06/18 Montelukast Sodium [Singulair 10 mg Tablet] 10 mg PO QHS 10/06/18 Tiotropium [place] [Spiriva Respimat] 2 puff IH DAILY 10/06/18 Fluticasone Propionate [Flonase Nasal [place] 50 Mcg/[place] 16 gm] 1 spray NASL Q12 spray.pump 10/10/18 Levofloxacin [Levaquin 750 mg Tablet] 750 mg PO QHS #5 tablet 10/10/18 Loratadine [Claritin 10 mg Tablet] 10 mg PO DAILY tablet 10/10/18 Montelukast Sodium [Singulair 10 mg Tablet] 10 mg PO QHS tablet 10/10/18 Oseltamivir Phosphate [Tamiflu 75 mg Capsule] 75 mg PO DAILY@1300 #5 capsule 10/10/18 Prednisone [Deltasone 20 mg Tablet] 10 mg PO BID #5 tablet 10/10/18 History of Present Illness History of Present Illness: KIKA SOSA is a 38 year old male 38 year old male with a past medical history of asthma requiring intubation who presents with less than 48 hours of fever, nonproductive cough, shortness of breath and arthralgia. He denies recent asthma flare and is prompted to seek evaluation in the emergency room where he is found to be hypoxic, tachypneic, febrile with influenza A positivity. He received several albuterol treatments with magnesium and referred to the hospitalist for admission. Patient had received his influenza vaccine this year. Physical Exam Vital Signs: Temp Pulse Resp BP Pulse Ox 98.3 F 85 19 100/50 L 95 10/10/18 12:00 10/10/18 12:00 10/10/18 12:00 10/10/18 12:00 10/10/18 13:39 Pulse Oximeter Continuous Start: 10/06/18 01:49 Freq: RTQ4 Status: Active Protocol: Document 10/10/18 13:39 J (Rec: 10/10/18 13:40 [facility] [email or web address]) Pulse Oximetry Assessment Oxygen Saturation (92-100) 95 Oxygen Flow Rate (L/min) 1 Oxygen Delivery Method Nasal Cannula Equipment Usage Equipment in Use Continuous SpO2 Machine # 4 Intake & Output 10/09/18 10/10/18 10/11/18 06:59 06:59 06:59 Intake Total 3277 1275 Balance 3277 1275 Weight 134.6 kg 131.3 kg General appearance: PRESENT: no acute distress Head exam: PRESENT: atraumatic Eye exam: PRESENT: PERRLA Mouth exam: PRESENT: dry mucosa Neck exam: ABSENT: carotid bruit, JVD, lymphadenopathy, thyromegaly Respiratory exam: PRESENT: decreased breath sounds Cardiovascular exam: PRESENT: RRR. ABSENT: diastolic murmur, rubs, systolic murmur GI/Abdominal exam: PRESENT: normal bowel sounds, soft. ABSENT: distended, guarding, mass, organolmegaly, rebound, tenderness Extremities exam: PRESENT: full ROM. ABSENT: calf tenderness, clubbing, pedal edema Neurological exam: PRESENT: alert, awake, oriented to person, oriented to place, oriented to time, oriented to situation, CN II-XII grossly intact. ABSENT: motor sensory deficit Psychiatric exam: PRESENT: appropriate affect, normal mood. ABSENT: homicidal ideation, suicidal ideation Results Laboratory Results: 10/09/18 06:56 10/07/18 05:13 Impressions: Chest X-Ray 10/05/18 23:40 IMPRESSION: Mild mixed interstitial and airpace opacities. Differential diagnosis includes pulmonary edema, multifocal pneumonia, and chronic interstitial lung disease. Chest CT 10/08/18 00:00 IMPRESSION: Bilateral pneumonia. Qualifiers - * PATIENT BEING DISCHARGED WITH ANY OF THE FOLLOWING DIAGNOSIS: No VTE patient discharged on overlapping Therapy?: No
[2018-10-10 17:11] VITALS: BP 109/55
== END 2018-10-10 17:40 | disposition home or self-care (01) | DRG 193 ==
LOC: ER 23:36 → EH 10-06 02:23 → 5 10-06 04:24
PROVIDERS: ADMIT Internal Medicine; ATTEND Internal Medicine
DX: J10.00 Influenza due to other identified influenza virus with unspecified type of pneumonia (principal); J96.01 Acute respiratory failure with hypoxia; J45.41 Moderate persistent asthma with (acute) exacerbation; Z68.41 Body mass index [BMI] 40.0-44.9, adult; E66.01 Morbid (severe) obesity due to excess calories; Z90.49 Acquired absence of other specified parts of digestive tract; Z79.51 Long term (current) use of inhaled steroids; Z79.82 Long term (current) use of aspirin; Z88.8 Allergy status to other drugs, medicaments and biological substances
CPT/HCPCS: 36415; 36600; 71045; 71250; 80048; 81332; 82803; 82962; 83605; 85025; 87040; 87804; 94640; 94762; 94799; 99291; J0696; J1956; J2920; J3475; J3490; J7030; J7120; J7512; J7620

== ENCOUNTER 2020-09-24 21:25 | Emergency (ER) | payer BC ==
[2020-09-24] MEDS ORDERED: ACETAMINOPHEN 325 MG TABLET PO ONE (21:40)
[2020-09-24] MEDS ORDERED: ONDANSETRON 4 MG TAB.RAPDIS PO ONE (21:41)
--- NOTE | 2020-09-24 21:42 | ER Document Report ---
ED Medical Screen (RME) - General Stated Complaint: CHILLS,NO TASTE,MUSCLE PAIN Time Seen by Provider: 09/24/20 21:30 Primary Care Provider: ADILIA BROUSSARD MD [Primary Care Provider] - Follow up as needed Notes: Patient presents complaining of chills, fatigue for the past 6 days. Patient states that he has had a mild cough. Patient reports receiving a Covid test yesterday although is still pending results. Patient does complain of nausea without any vomiting or diarrhea. Patient has underlying history of asthma. I have greeted and performed a rapid initial assessment of this patient. A comprehensive ED assessment and evaluation of the patient, analysis of test results and completion of the medical decision making process will be conducted by additional ED providers. TRAVEL OUTSIDE OF THE [place] IN LAST 30 DAYS: No - Related Data Allergies/Adverse Reactions: aspirin [Aspirin] Allergy (Severe, Verified 10/06/18 10:27) bronchoconstriction NSAIDS (Non-Steroidal Anti-Inflamma [Nsaids] Allergy (Verified 10/06/18 10:27) Past Medical History - Past Medical History Cardiac Medical History: Denies: Hx Coronary Artery Disease, Hx Heart Attack, Hx Hypertension Pulmonary Medical History: Reports: Hx Asthma Denies: Hx Bronchitis, Hx COPD, Hx Pneumonia Neurological Medical History: Denies: Hx Cerebrovascular Accident, Hx Seizures Renal/ Medical History: Denies: Hx Peritoneal Dialysis Musculoskeltal Medical History: Denies Hx Arthritis, Reports Hx Musculoskeletal Deformity, Reports Hx Musculoskeletal Trauma Past Surgical History: Reports: Hx Appendectomy, Other - Sinus surgery - Immunizations Immunizations up to date: Yes Hx Diphtheria, Pertussis, Tetanus Vaccination: Yes Physical Exam - Respiratory Respiratory status: Tachypnea Chest status: Nontender Breath sounds: Nonproductive cough Doctor's Discharge - Discharge Referrals: ADILIA BROUSSARD MD [Primary Care Provider] - Follow up as needed
[2020-09-24] MEDS ORDERED: RINGERS SOLUTION,LACTATED 1,000 ML IV ONE (21:45)
[2020-09-24 23:15] LABS: ABSOLUTE LYMPHOCYTES (AUTO) 1.4 10^3/uL (0.5-4.7); ABSOLUTE MONOCYTES (AUTO) 0.4 10^3/uL (0.1-1.4); ABSOLUTE NEUT (AUTO) 2.4 10^3/uL (1.7-8.2); BASOPHILS % (AUTO) 0.6 % (0-2); EOSINOPHILS % (AUTO) 0.9 % (0-6); HEMOGLOBIN 15.3 g/dL (13.5-17.0); LYMPHOCYTES % (AUTO) 32.8 % (13-45); MEAN CORPUSCULAR HEMOGLOBIN 28.3 pg (27.0-33.4); MEAN CORPUSCULAR HGB CONC 34.8 g/dL (32.0-36.0); MEAN CORPUSCULAR VOLUME 81 fl (80-97); MONOCYTES % (AUTO) 10.1 % (3-13); PLATELET COUNT 196 10^3/uL (150-450); RED BLOOD COUNT 5.42 10^6/uL (4.35-5.55); RED CELL DISTRIBUTION WIDTH 13.5 % (11.5-14.0); SEGMENTED NEUTROPHILS % (AUTO) 55.6 % (42-78); TOTAL CELLS COUNTED % (AUTO) 100 %; WHITE BLOOD COUNT 4.4 10^3/uL (4.0-10.5)
[2020-09-24 23:21] LABS: INTERNATIONAL RATION (INR) 0.92; PROTHROMBIN TIME 12.6 SEC (11.4-15.4)
--- NOTE | 2020-09-24 23:26 | RADIOLOGY REPORT (SQ) ---
EXAM DESCRIPTION: XR CHEST 1 VIEW COMPLETED DATE/TME: 09/24/2020 22:58 CLINICAL HISTORY: 40 years, Male, fever, cough EXAM DESCRIPTION: CHEST SINGLE VIEW CLINICAL HISTORY: fever, cough COMPARISON: 10/06/2018 FINDINGS: Single view of the chest is submitted. Cardiac silhouette is normal. No focal parenchymal or pleural disease. There is no significant pulmonary vascular engorgement. IMPRESSION: No evidence of acute cardiopulmonary disease.
[2020-09-24 23:29] LABS: ALBUMIN 3.8 g/dL (3.5-5.0); ALKALINE PHOSPHATASE 57 U/L (38-126); ANION GAP 7 (5-19); ASPARTATE AMINO TRANSFERASE 26 U/L (17-59); BILIRUBIN,DIRECT 0.2 mg/dL (0.0-0.4); BILIRUBIN,TOTAL 0.3 mg/dL (0.2-1.3); BLOOD UREA NITROGEN 15 mg/dL (7-20); CALCIUM 8.6 mg/dL (8.4-10.2); CARBON DIOXIDE 25 mmol/L (22-30); CHLORIDE 102 mmol/L (98-107); GLUCOSE 121 mg/dL (75-110); POTASSIUM 3.9 mmol/L (3.6-5.0); TOTAL PROTEIN 6.8 g/dL (6.3-8.2)
[2020-09-24 23:36] LABS: VENOUS BLOOD BASE EXCESS -0.3 mmol/L; VENOUS BLOOD HCO3 25.6 mmol/L (20-32); VENOUS BLOOD PCO2 46.5 mmHg (35-63); VENOUS BLOOD PH 7.36 (7.30-7.42)
--- NOTE | 2020-09-25 00:19 | EKG REPORT ---
SEVERITY:- ABNORMAL ECG - SINUS RHYTHM PROBABLE LEFT ATRIAL ABNORMALITY ABNORMAL T, CONSIDER ISCHEMIA, LATERAL LEADS PROLONGED QT INTERVAL : Confirmed by: Gui Khoury MD 25-Sep-2020 00:19:01
--- NOTE | 2020-09-25 01:26 | ER Document Report ---
ED Flu Like - General Chief Complaint: Flu Symptoms Stated Complaint: CHILLS,NO TASTE,MUSCLE PAIN Time Seen by Provider: 09/24/20 21:30 Primary Care Provider: ADILIA BROUSSARD MD [Primary Care Provider] - Follow up in 3-5 days TRAVEL OUTSIDE OF THE [place] IN LAST 30 DAYS: No - HPI Notes: Patient is a 40-year-old male with a past medical history of asthma who presents with fatigue and chills. Patient states he began feeling sick since September 19. On Sunday, he states that he just wanted to sleep most of the day. He has a cough that is not productive. He states that he noticed that his taste and smell is off. Patient states he was tested for Covid yesterday at [facility] but does not know the results yet. He states he has had some headaches. No chest pain or shortness of breath. No diarrhea, nausea, vomiting. - Related Data Allergies/Adverse Reactions: aspirin [Aspirin] Allergy (Severe, Verified 10/06/18 10:27) bronchoconstriction NSAIDS (Non-Steroidal Anti-Inflamma [Nsaids] Allergy (Verified 10/06/18 10:27) Home Medications: prednisione. singulair. zyrtec. dulera Past Medical History - General Information source: Patient - Social History Smoking Status: Never Smoker Chew tobacco use (# tins/day): No Frequency of alcohol use: Occasional Drug Abuse: None Family History: Reviewed & Not Pertinent Patient has homicidal ideation: No - Past Medical History Cardiac Medical History: Denies: Hx Coronary Artery Disease, Hx Heart Attack, Hx Hypertension Pulmonary Medical History: Reports: Hx Asthma Denies: Hx Bronchitis, Hx COPD, Hx Pneumonia Neurological Medical History: Denies: Hx Cerebrovascular Accident, Hx Seizures Renal/ Medical History: Denies: Hx Peritoneal Dialysis Musculoskeletal Medical History: Denies Hx Arthritis, Reports Hx Musculoskeletal Deformity, Reports Hx Musculoskeletal Trauma Past Surgical History: Reports: Hx Appendectomy, Other - Sinus surgery - Immunizations Immunizations up to date: Yes Hx Diphtheria, Pertussis, Tetanus Vaccination: Yes Review of Systems - Review of Systems Notes: CONSTITUTIONAL: No fever. Positive for chills and fatigue. SKIN: No rash. HENT: No congestion, ear pain, or sore throat. EYES: No recent vision problems or eye pain. CARDIOVASCULAR: No chest pain or edema. RESPIRATORY: No shortness of breath, congestion, or wheezing. Positive for cough. GASTROINTESTINAL: No abdominal pain, nausea, vomiting, bloody stools or diarrhea. GENITOURINARY: No dysuria. MUSCULOSKELETAL: No joint pain or swelling. LYMPHATIC: No swollen glands. NEUROLOGIC: No seizures. No headache, focal weakness or sensory changes. HEMATOLOGIC: No unusual bruising or bleeding. PSYCHIATRIC: No depression or anxiety. Physical Exam - Vital signs Vitals: Temp Pulse Resp BP Pulse Ox 102.0 F H 106 H 18 135/84 H 98 09/24/20 21:32 09/24/20 21:32 09/24/20 21:32 09/24/20 21:32 09/24/20 21:32 - General General appearance: Appears well In distress: None Notes: VITAL SIGNS: Febrile. GENERAL: No acute distress, non-toxic appearance. HEAD: Normal with no signs of head trauma. EYES: Conjunctiva normal, no discharge. EARS: Hearing grossly intact. NOSE: Normal. NECK: Normal range of motion, no tenderness, supple, no lymphadenopathy, No adenopathy, no JVD. CHEST: Clear breath sounds bilaterally. CARDIAC: Regular rate and rhythm. VASCULAR: No Edema. ABDOMEN: Normal and soft with no tenderness, no masses or pulsatile masses. MUSCULOSKELETAL: Good range of motion of all major joints. Extremities without clubbing, cyanosis or edema. NEUROLOGICAL: Alert and oriented x 3. No focal sensory or strength deficits. Speech normal. Follows commands appropriately. PSYCHIATRIC: Normal Affect, judgement and mood. SKIN: Normal appearance with no rashes or lesions. Course - Re-evaluation Re-evalutation: 09/25/20 01:26 Patient appears well on exam. He is ambulating around the room. He does have a fever here. He was given Tylenol. He states he has anaphylaxis to ibuprofen. Patient's lab work is unremarkable. His x-ray does not show any pneumonia. He states he takes daily prednisone for his asthma. He already has an inhaler. Patient states he wanted retested for Covid because he had to self swab and was afraid it was inaccurate. Patient will be discharged with doxycycline due to his chronic asthma and lung disease. He was told to follow-up with his PCP. Patient was given strict return precautions. I instructed him to take a multivitamin and stay hydrated. He will self isolate until he is called with a negative result. 09/25/20 02:16 - Vital Signs Vital signs: Temp Pulse Resp BP Pulse Ox 101.4 F H 92 18 118/64 95 09/25/20 02:04 09/25/20 02:04 09/25/20 02:04 09/25/20 02:04 09/25/20 02:04 - Laboratory Results Result Diagrams: 09/24/20 23:03 09/24/20 23:03 Laboratory Results Interpreted: 09/24/20 23:03 Sodium 134.2 L Glucose 121 H Critical Laboratory Results Reviewed: No Critical Results - Radiology Results Critical Radiology Results Reviewed: No Critical Results - EKG Interpretation by Me EKG shows normal: Sinus rhythm Rate: Normal Rhythm: NSR When compared to previous EKG there are: Previous EKG unavailable Additional EKG results interpreted by me: 09/25/20 01:53 Sinus rhythm at a rate of 95. QTc 503. No acute ST changes. Previous EKG unavailable. Discharge - Discharge Clinical Impression: Cough, Viral syndrome, Suspected COVID-19 virus infection Fever Qualifiers: Fever type: unspecified Qualified Code(s): R50.9 - Fever, unspecified Condition: Stable Disposition: HOME, SELF-CARE Instructions: COVID-19 Guidance for Persons Under Investigation Additional Instructions: Your work-up today is reassuring. You will be called with the results of your Covid test. Please self isolate until you are called with a negative result. Make sure you are staying hydrated. You may take a multivitamin. Return to the ER immediately for any shortness of breath or worsening symptoms. Prescriptions: Doxycycline Hyclate [Vibramycin 100 mg Tablet] 100 mg PO BID 7 Days #14 tablet Referrals: ADILIA BROUSSARD MD [Primary Care Provider] - Follow up in 3-5 days
[2020-09-25 02:04] VITALS: BP 118/64
[2020-09-25 02:08] LABS: A TYPE INFLUENZA AG NEGATIVE (NEGATIVE); B INFLUENZA AG POSITIVE (NEGATIVE)
== END 2020-09-25 02:04 | disposition home or self-care (01) ==
LOC: ER 21:25
DX: U07.1 COVID-19 (principal); J45.909 Unspecified asthma, uncomplicated; Z79.52 Long term (current) use of systemic steroids; Z79.51 Long term (current) use of inhaled steroids; Z79.899 Other long term (current) drug therapy; Z87.892 Personal history of anaphylaxis; Z88.8 Allergy status to other drugs, medicaments and biological substances
CPT/HCPCS: 93005; 99285; 96360; 96361; 36415; 87040; 83605; 85025; 85610; 80053; 82803; 87804; 71045; 93010; U0003; S0119; J7120; C9803; 87635